=== PATIENT | female | born 1950 | race African-American/Black ===

== ENCOUNTER 2016-12-02 13:35 | Emergency (ER) | payer MEDICARE, OTHER ==
[~2016-12-02] VITALS: Ht 162.6 cm; Wt 64.0 kg
[2016-12-02] MEDS ORDERED: Famotidine 20 MG/ 2ML VIAL IVP ONE (14:00)
[2016-12-02] MEDS ORDERED: Lidocaine 2% Visc 15ml soln ORAL ONE (14:00)
[2016-12-02] MEDS ORDERED: LORazepam Inj 2mg/ml 1ml IV ONE (14:00)
[2016-12-02] MEDS ORDERED: Dicyclomine HCl 10mg/5ml oral soln ORAL ONE (14:00)
[2016-12-02] MEDS ORDERED: Mylanta II UD 30ml ORAL ONE (14:00)
--- NOTE | 2016-12-02 14:01 | Emergency Room Report ---
History of Present Illness General Chief Complaint: Chest Pain Source: Medical Record Present Illness HPI 58-year-old female with pmhx of anxiety p/w epigastric and chest pain for 3 weeks. Chest pain starts mostly after patient eats. Localized to the epigastric area and radiating up towards chest no radiation to back, sharp in nature, gradual in onset, lasts more than one hour with multiple episodes throughout the day. States that it occurs both at rest and on exertion. Patient also states that she has coughing episodes associated with the chest pain, associated with SOB. Denies palpitations, diaphoresis. Also reports nausea and vomiting about 2-3 episodes a day, cannot keep anything down Last bowel movement was today, is passing gas. Denies diarrhea Has a history of abdominal hysterectomy many years ago Denies fever, chills. Denies trauma. Patient has never had a stress test. Patient has never had a cardiac catheterization. Denies history of endoscopy or colonoscopy. Patient states that she was taking 800 mg every so often prior to 3 weeks ago Denies smoking, no family history of cardiac disease at a young age. Allergies: Coded Allergies: CODEINE (Verified Allergy, Unknown, 12/02/16) PENICILLINS (Verified Allergy, Unknown, 12/02/16) Patient History Past Medical History: see triage record Past Surgical History: none Pertinent Family History: none Last Menstrual Period: N/A Now: No Reviewed Nursing Documentation: PMH: Agreed, PSxH: Agreed Nursing Documentation-PMH Past Medical History: No History, Except For Hx Hypertension: Yes Hx Asthma: Yes Review of Systems All Other Systems: negative except mentioned in HPI Physical Exam Vital Signs Date Time Temp Pulse Resp B/P (MAP) Pulse Ox O2 Delivery O2 Flow Rate FiO2 12/02/16 13:29 97.9 90 18 150/75 98 Room Air Sp02 EP Interpretation: reviewed, normal General Appearance: alert, GCS 15, non-toxic, moderate distress, other - Middle aged female, nontoxic-appearing, well-hydrated,. Anxious, speaking complete sentences with intermittent coughing Head: normocephalic, atraumatic Eyes: bilateral eye normal inspection, bilateral eye PERRL, bilateral eye EOMI ENT: normal ENT inspection, normal pharynx, normal voice, moist mucus membranes Neck: normal inspection, full range of motion, supple Respiratory: normal inspection, lungs clear, normal breath sounds, no respiratory distress, no retraction, no wheezing, speaking full sentences, chest symmetrical Cardiovascular #1: normal inspection, no edema, normal capillary refill, tachycardia - 100 Cardiovascular #2: 2+ radial (R), 2+ radial (L) Gastrointestinal: soft, non-distended, no guarding, other - + Mild epigastric tenderness, no right quadrant tenderness, no guarding or rebound Musculoskeletal: normal inspection, back normal, normal range of motion, non- tender Neurologic: normal inspection, alert, oriented x3, responsive, motor strength/ tone normal, sensory intact, normal gait, speech normal Psychiatric: normal inspection, judgement/insight normal, memory normal Skin: normal inspection, normal color, no rash, warm/dry, well hydrated, normal turgor Medical Decision Making Diagnostic Impression: Primary Impression: Chronic epigastric pain Additional Impression: Hypokalemia ER Course 58-year-old female with 3 weeks of epigastric and chest pain, also with cough DDX: Likely gastritis/GERD, ACS vs. CHF vs. pneumonia Plan: IV access, obtain labs including lipase, troponin, EKG, CXR IV fluids, Zofran, GI cocktail, Pepcid ER course: Patient has remained stable during ED stay. Pain improved. Repeat abdominal exam is nontender. Tolerating PO Patient had hypokalemia which was supplemented with 60 po (couldnt tolerate IV) patient has been stable after given meds no cp trop neg x 2 will dc Disposition: Patient is to be discharged to home. Patient is instructed to follow up with their primary care doctor within 5 days. Strict return precautions discussed with patient such as fever, chills, worsening/severe abdominal pain, nausea, vomiting, black or bloody stools, which may indicate severe illness. Patient verbalizes understanding and agrees with plan. Please note that this Emergency Department Report was dictated using [employer] inspector technology software, occasionally this can lead to erroneous entry secondary to interpretation by the dictation equipment EKG Diagnostic Results EP Interpretation: Yes Rate: normal Rhythm: NSR ST Segments: No acute changes, +pvcs ASA given to patient: Y Rhythm Strip EP Interpretation: Yes Rate: 94 Rhythm: NSR, no PVCs, no ectopy Chest X-ray CXR: Ordered: Yes 1 view Indication: Chest pain EP interpretation: Yes Interpretation: No consolidation, no effusion, no PTX, no acute cardiopulmonary disease Impression: No acute disease Electronically signed by Elaine Deluna MD Laboratory Tests Test 12/02/16 14:30 12/02/16 20:17 White Blood Count 10.5 K/UL (4.8-10.8) Red Blood Count 4.23 M/UL (4.20-5.40) Hemoglobin 7.2 G/DL (12.0-16.0) L Hematocrit 25.0 % (37.0-47.0) L Mean Corpuscular Volume 59 FL (80-99) L Mean Corpuscular Hemoglobin 17.0 PG (27.0-31.0) L Mean Corpuscular Hemoglobin Concent 28.8 G/DL (32.0-36.0) L Red Cell Distribution Width 15.9 % (11.6-14.8) H Platelet Count 405 K/UL (150-450) Mean Platelet Volume 5.4 FL (6.5-10.1) L Neutrophils (%) (Auto) % (45.0-75.0) Lymphocytes (%) (Auto) % (20.0-45.0) Monocytes (%) (Auto) % (1.0-10.0) Eosinophils (%) (Auto) % (0.0-3.0) Basophils (%) (Auto) % (0.0-2.0) Differential Total Cells Counted 100 Neutrophils % (Manual) 73 % (45-75) Lymphocytes % (Manual) 14 % (20-45) L Monocytes % (Manual) 13 % (1-10) H Eosinophils % (Manual) 0 % (0-3) Basophils % (Manual) 0 % (0-2) Band Neutrophils 0 % (0-8) Platelet Estimate Adequate Platelet Morphology Normal Polychromasia 2+ Hypochromasia 3+ Poikilocytosis 1+ Anisocytosis 2+ Microcytosis 3+ Target Cells 2+ Sodium Level 146 MMOL/L (136-145) H 147 MMOL/L (136-145) H Potassium Level 2.8 MMOL/L (3.5-5.1) L 3.2 MMOL/L (3.5-5.1) L Chloride Level 108 MMOL/L (98-107) H 112 MMOL/L (98-107) H Carbon Dioxide Level 22 MMOL/L (21-32) 24 MMOL/L (21-32) Anion Gap 16 mmol/L (5-15) H 11 mmol/L (5-15) Blood Urea Nitrogen 7 mg/dL (7-18) 6 mg/dL (7-18) L Creatinine 0.7 MG/DL (0.55-1.30) 0.6 MG/DL (0.55-1.30) Estimate Glomerular Filtration Rate > 60 mL/min (>60) > 60 mL/min (>60) Glucose Level 101 MG/DL (74-106) 97 MG/DL (74-106) Calcium Level 9.3 MG/DL (8.5-10.1) 8.5 MG/DL (8.5-10.1) Total Bilirubin 0.2 MG/DL (0.2-1.0) 0.2 MG/DL (0.2-1.0) Aspartate Amino Transferase (AST) 21 U/L (15-37) 13 U/L (15-37) L Alanine Aminotransferase (ALT) 16 U/L (12-78) 13 U/L (12-78) Alkaline Phosphatase 58 U/L (46-116) 52 U/L (46-116) Total Creatine Kinase 91 U/L (26-308) Creatine Kinase MB 0.8 NG/ML (0.0-3.6) Creatine Kinase MB Relative Index 0.8 Troponin I 0.017 ng/mL (0.000-0.056) 0.017 ng/mL (0.000-0.056) Pro-B-Type Natriuretic Peptide 221 pg/mL (0-125) H Total Protein 7.6 G/DL (6.4-8.2) 6.7 G/DL (6.4-8.2) Albumin 3.4 G/DL (3.4-5.0) 3.0 G/DL (3.4-5.0) L Globulin 4.2 g/dL 3.7 g/dL Albumin/Globulin Ratio 0.8 (1.0-2.7) L 0.8 (1.0-2.7) L Lipase 67 U/L (73-393) L Last Vital Signs Date Time Temp Pulse Resp B/P (MAP) Pulse Ox O2 Delivery O2 Flow Rate FiO2 12/02/16 13:29 97.9 90 18 150/75 98 Room Air Disposition: HOME, SELF-CARE Condition: Improved Scripts Famotidine (PEPCID) 40 Mg Tablet 40 MG PO DAILY for 7 Days, #7 TAB 0 Refills Prov: Elaine Deluna M.D. 12/02/16 Patient Instructions: Food Choices for Gastroesophageal Reflux Disease, Adult, Gastritis, Adult, [id number], Hypokalemia Elaine Deluna M.D. Dec 02, 2016 14:01
[2016-12-02] MEDS ORDERED: Tubing IV Cassette IV ONE (14:38)
[2016-12-02 15:03] LABS: MEAN CORPUSCULAR HGB CONC 28.8 G/DL (32.0-36.0); MEAN CORPUSCULAR VOLUME 59 FL (80-99); MEAN PLATELET VOLUME 5.4 FL (6.5-10.1); PLATELET COUNT 405 K/UL (150-450); RED BLOOD COUNT 4.23 M/UL (4.20-5.40); RED CELL DISTRIBUTION WIDTH 15.9 % (11.6-14.8); WHITE BLOOD COUNT 10.5 K/UL (4.8-10.8)
[2016-12-02 15:28] LABS: ALANINE AMINOTRANSFERASE 16 U/L (12-78); ALBUMIN/GLOBULIN RATIO 0.8 (1.0-2.7); ANION GAP 16 mmol/L (5-15); ASPARTATE AMINO TRANSFERASE 21 U/L (15-37); CALCIUM 9.3 MG/DL (8.5-10.1); CARBON DIOXIDE 22 MMOL/L (21-32); CHLORIDE 108 MMOL/L (98-107); CKMB 0.8 NG/ML (0.0-3.6); CREATININE 0.7 MG/DL (0.55-1.30); GLOMERULAR FILTRATION RATE > 60 mL/min (>60); POTASSIUM 2.8 MMOL/L (3.5-5.1); SODIUM 146 MMOL/L (136-145); TOTAL PROTEIN 7.6 G/DL (6.4-8.2)
--- NOTE | 2016-12-02 15:55 | Diagnostic Imaging Report ---
Indication: PAIN shortness of breath Technique: One view of the chest Comparison: none Findings: Lungs and pleural spaces are clear. Heart size is normal. Impression: No acute process
[2016-12-02 16:00] VITALS: BP_SYST 145; BP_SYST 93; BP_DIAS 54; BP_DIAS 73
[2016-12-02 16:01] LABS: LYMPHOCYTES % (MANUAL) 14 % (20-45); NEUTROPHILS % (MANUAL) 73 % (45-75); TOTAL CELLS COUNTED 100
[2016-12-02 16:03] LABS: ANISOCYTOSIS 2+; BAND NEUTROPHILS % (MANUAL) 0 % (0-8); BASOPHILS % (MANUAL) 0 % (0-2); EOSINOPHILS % (MANUAL) 0 % (0-3); HYPOCHROMASIA 3+; MICROCYTES 3+; PLATELET ESTIMATE ADEQUATE; PLATELET MORPHOLOGY NORMAL; POIKILOCYTOSIS 1+; POLYCHROMASIA 2+; TARGET CELLS 2+
[2016-12-02] MEDS ORDERED: PEPCID40 MG PO (16:55)
[2016-12-02 18:00] VITALS: BP 132/85
[2016-12-02 21:17] LABS: ALANINE AMINOTRANSFERASE 13 U/L (12-78); ALBUMIN/GLOBULIN RATIO 0.8 (1.0-2.7); ANION GAP 11 mmol/L (5-15); ASPARTATE AMINO TRANSFERASE 13 U/L (15-37); CALCIUM 8.5 MG/DL (8.5-10.1); CARBON DIOXIDE 24 MMOL/L (21-32); CHLORIDE 112 MMOL/L (98-107); CREATININE 0.6 MG/DL (0.55-1.30); GLOMERULAR FILTRATION RATE > 60 mL/min (>60); POTASSIUM 3.2 MMOL/L (3.5-5.1); SODIUM 147 MMOL/L (136-145); TOTAL PROTEIN 6.7 G/DL (6.4-8.2)
[2016-12-02 21:30] VITALS: BP 130/83
[2016-12-02 21:49] VITALS: BP 130/83
--- NOTE | 2016-12-03 15:12 | Cardiology Report ---
APPROVED REPORT EKG Measurement Heart [id number] Sinus rhythm with occasional premature ventricular complexes and premature atrial complexes Inferior infarct, age undetermined Possible Anterior infarct, age undetermined Abnormal ECG
[2016-12-04 07:51] LABS: OTHERS PATHOLOGIST COMMENT
== END 2016-12-02 21:49 | disposition home or self-care (01) ==
LOC: EDBD 13:35 → EMR 14:45
DX: R07.9 Chest pain, unspecified (principal); R10.13 Epigastric pain; R06.02 Shortness of breath; E87.6 Hypokalemia; R05 Cough
CPT/HCPCS: 36415; 71010; 80053; 82550; 82553; 83690; 83880; 84484; 85007; 85025; 93005; 96361; 96365; 96366; 96375; 99284; J2405; J3480; S0028; J8499